=== PATIENT | female | born 1990 | race Caucasian/White ===

== ENCOUNTER 2019-06-08 09:32 | Outpatient (REF) | payer BC, SELFPAY ==
--- NOTE | 2019-06-08 08:45 | PAPFT_PTH ---
PATIENT: Roro Chapman LOC: [facility] U#:[id number] AGE/SX: 29/F ROOM: RE06/08/[address]: Heavenly Guy NP : 1990 BED: DIS: 06/08/2019 SPEC #: [id number] RECD: 06/08/19 12:40 STATUS: ALTON VERAS #: [id number] ROSS: 06/08/19 08:[address]: Heavenly Guy NP DEPT: [facility] Cytology RECD BY: Joi Sanchez Tissues: 1 - CX/ENDOCX FOR PAP SMEARS Procedures: PAP THIN PREP/[facility] Screening Comments: [id number] (CHLAMYDIA/GC)
[2019-06-09 12:32] LABS: Chlamydia Result Negative (Negative); GC Result Negative (Negative)
== END 2019-06-08 09:52 ==
LOC: LBN 09:32
PROVIDERS: Visit Provider Nurse Practitioner Women's Health
DX: Z12.4 Encounter for screening for malignant neoplasm of cervix (principal)
CPT/HCPCS: 87491; 87591; 88142

== ENCOUNTER 2020-07-10 09:41 | Outpatient (REF) | payer BC, SELFPAY ==
--- NOTE | 2020-07-10 09:15 | PAPFT_PTH ---
PATIENT: Roro Chapman LOC: [facility] U#:[id number] AGE/SX: 30/F ROOM: RE07/10/[address]: DINH Monterroso : 1990 BED: DIS: 07/10/2020 SPEC #: [id number] RECD: 07/10/20 12:56 STATUS: ALTON REMarilou #: [id number] ROSS: 07/10/20 09:[address]: Estela Tate DEPT: [facility] Cytology RECD BY: Joi Sanchez ENTERED: 07/10/20 12:56 SP TYPE: PAPFT OTHR DR: DINH Wang Tissues: 1 - CX/ENDOCX FOR PAP SMEARS Procedures: PAP THIN PREP/[facility] Screening Comments: [id number]
== END 2020-07-10 09:42 | disposition home or self-care (01) ==
LOC: LBN 09:41
PROVIDERS: PCP Nurse Practitioner Family; Visit Provider Nurse Practitioner Family
DX: Z12.4 Encounter for screening for malignant neoplasm of cervix (principal)
CPT/HCPCS: 88142

== ENCOUNTER 2020-09-28 02:39 | Outpatient (CLI) | payer BC, SELFPAY ==
[2020-09-28 13:02] LABS: Anion Gap 7.9 mmol/L (3-11); BUN 10 mg/dL (7-18); CO2 28.1 mmol/L (21.0-32.0); CREATININE 0.8 mg/dL (0.55-1.02); Calcium 8.8 mg/dL (8.5-10.1); Calculated LDL 71 mg/dL (<100); Chloride 106 mmol/L (98-107); Cholesterol 132 mg/dL (<200); Glucose 88 mg/dL (74-106); HDL Cholesterol 52 mg/dL (40-60); Potassium 4.2 mmol/L (3.5-5.1); Sodium 142 mmol/L (136-145); Triglyceride 49 mg/dL (<150)
== END 2020-09-28 02:40 | disposition home or self-care (01) ==
LOC: LOS 02:40
PROVIDERS: PCP Nurse Practitioner Family; Visit Provider Nurse Practitioner Family
DX: Z00.00 Encounter for general adult medical examination without abnormal findings (principal); Z13.1 Encounter for screening for diabetes mellitus; Z13.220 Encounter for screening for lipoid disorders
CPT/HCPCS: 36415; 80048; 80061; 83036